=== PATIENT | male | born 1985 | race Asian ===

== ENCOUNTER 2017-05-08 21:39 | Emergency (ER) | payer OTHER ==
[~2017-05-08] VITALS: Ht 175.3 cm; Wt 74.0 kg
[2017-05-08 22:04] VITALS: BP 142/82
== END 2017-05-08 22:43 | disposition home or self-care (01) ==
LOC: ED 22:37
DX: S09.90XA Unspecified injury of head, initial encounter (principal); W19.XXXA Unspecified fall, initial encounter; Y93.89 Activity, other specified; Y92.89 Other specified places as the place of occurrence of the external cause; Y99.8 Other external cause status
CPT/HCPCS: 99281

== ENCOUNTER 2018-02-22 16:59 | Emergency (ER) | payer OTHER ==
[~2018-02-22] VITALS: Ht 177.8 cm; Wt 68.6 kg
[2018-02-22 17:22] VITALS: BP 154/81
== END 2018-02-22 18:15 | disposition home or self-care (01) ==
LOC: ED 18:05
DX: S43.121A Dislocation of right acromioclavicular joint, 100%-200% displacement, initial encounter (principal); F17.200 Nicotine dependence, unspecified, uncomplicated; X58.XXXA Exposure to other specified factors, initial encounter; Y93.89 Activity, other specified; Y99.8 Other external cause status; Y92.89 Other specified places as the place of occurrence of the external cause
CPT/HCPCS: 29505; 99284